=== PATIENT | male | born 1945 | race Caucasian/White ===

== ENCOUNTER 2017-05-23 14:54 | Outpatient (CLI) | payer MEDICARE, BC ==
[2017-05-14 11:42] VITALS: O2SAT 95
== END 2017-05-23 14:55 | disposition home or self-care (01) | DRG 556 ==
LOC: CONVCARE 14:54
PROVIDERS: ATTEND Orthopaedic Surgery
DX: M25.512 Pain in left shoulder (principal); M19.012 Primary osteoarthritis, left shoulder; M54.2 Cervicalgia; M54.12 Radiculopathy, cervical region
CPT/HCPCS: 72040